=== PATIENT | female | born 1990 | race African-American/Black ===

== ENCOUNTER 2018-06-05 10:51 | Emergency (ER) | payer BC, SELFPAY ==
--- NOTE | 2018-06-05 11:29 | ER ---
Nurse's Notes [facility] Name: Holly Poe Age: 28 yrs Sex: Female : 1990 Arrival Date: 06/05/2018 Time: 10:56 Bed Treatment Private MD: None, None Diagnosis: Acute nasopharyngitis [common cold];Cough Presentation: 06/05 11:01 Presenting complaint: Patient states: Sinus congestion and nonproductive cough x 1 hb week. Denies fever. Transition of care: patient was not received from another setting of care. Onset of symptoms was May 30, 2018. Risk Assessment: Do you want to hurt yourself or someone else? Patient reports no desire to harm self or others. Initial Sepsis Screen: Does the patient meet any 2 criteria? No. Patient's initial sepsis screen is negative. Does the patient have a suspected source of infection? No. Patient's initial sepsis screen is negative. Care prior to arrival: None. 11:01 Method Of Arrival: Ambulatory hb 11:01 Acuity: PAYAL 4 hb Historical: - Allergies: 11:00 No Known Allergies; hb - Home Meds: 11:00 Depo-Provera intramuscular IM [Active]; hb - PMHx: 11:00 None; hb - PSHx: 11:00 None; hb - Immunization history:: Adult Immunizations up to date. - Social history:: Smoking status: Patient/guardian denies using tobacco. - Ebola Screening: : No symptoms or risks identified at this time. Screenin:05 Abuse screen: Denies threats or abuse. Denies injuries from another. Nutritional ss screening: No deficits noted. Tuberculosis screening: No symptoms or risk factors identified. Never had TB. Fall Risk None identified. Assessment: 11:05 General: Appears in no apparent distress. comfortable, Behavior is calm, cooperative, ss Reports feeling ill for > 3 days, Denies fever. Pain: Denies pain. Neuro: Level of Consciousness is awake, alert, obeys commands, Oriented to person, place, time, situation. Cardiovascular: Capillary refill < 3 seconds is brisk in bilateral fingers. Respiratory: Reports cough that is x 1 week that is not productive Airway is patent Respiratory effort is even, unlabored, Respiratory pattern is regular, symmetrical, Breath sounds are clear bilaterally. EENT: Oral mucosa is moist. Throat is clear is pink. Derm: Skin is intact, is healthy with good turgor, Skin is pink, warm \T\ dry. normal. Musculoskeletal: Circulation, motion, and sensation intact. Range of motion: intact in all extremities, Swelling absent. Vital Signs: 11:03 BP 119 / 86; Pulse 72; Resp 16; Temp 98; Pulse Ox 97% ; Weight 51.71 kg; Height 5 ft. 4 hb in. (162.56 cm); Pain 3/10; 11:03 Body Mass Index 19.57 (51.71 kg, 162.56 cm) hb ED Course: 10:56 Patient arrived in ED. sb2 10:56 None, None is Private Physician. sb2 10:59 [facility] jr8 10:59 Charles Cordero MD is Attending Physician. jr8 11:03 Triage completed. hb 11:03 Arm band placed on right wrist. hb 11:05 Patient has correct armband on for positive identification. Bed in low position. Call ss light in reach. 11:50 Stella Powers RN is Primary Nurse. ss 11:52 No provider procedures requiring assistance completed. Patient did not have IV access ss during this emergency room visit. Administered Medications: No medications were administered Outcome: 11:29 Discharge ordered by . jr8 11:52 Discharged to home ambulatory. ss 11:52 Condition: good 11:52 Discharge instructions given to patient, family, Instructed on discharge instructions, follow up and referral plans. medication usage, Demonstrated understanding of instructions, follow-up care, medications, Prescriptions given X 1. 11:53 Patient left the ED. ss Signatures: Stella Powers RN RN Trung Interiano PA PA jr8 Anais Gary RN RN Jing Gurrola sb2
--- NOTE | 2018-06-05 11:29 | EDPHYS ---
Physician Documentation [facility] Name: Holly Poe Age: 28 yrs Sex: Female : 1990 Arrival Date: 06/05/2018 Time: 10:56 Bed Treatment Private MD: None, None ED Physician Charles Cordeor HPI: 06/05 11:20 This 28 yrs old Black Female presents to ER via Ambulatory with complaints of Flu jr8 Symptoms. 11:20 Mother stated that her and her two boys have had coughs. Hers has been going on for a jr8 week now. Denies any other symptoms . Severity of symptoms: At their worst the symptoms were mild in the emergency department the symptoms are unchanged. The patient has not experienced similar symptoms in the past. The patient has not recently seen a physician. Historical: - Allergies: 11:00 No Known Allergies; hb - Home Meds: 11:00 Depo-Provera intramuscular IM [Active]; hb - PMHx: 11:00 None; hb - PSHx: 11:00 None; hb - Immunization history:: Adult Immunizations up to date. - Social history:: Smoking status: Patient/guardian denies using tobacco. - Ebola Screening: : No symptoms or risks identified at this time. ROS: 11:20 Eyes: Negative for injury, pain, redness, and discharge, ENT: Negative for injury, jr8 pain, and discharge, Neck: Negative for injury, pain, and swelling, Cardiovascular: Negative for chest pain, palpitations, and edema, Abdomen/GI: Negative for abdominal pain, nausea, vomiting, diarrhea, and constipation, Back: Negative for injury and pain, MS/Extremity: Negative for injury and deformity, Skin: Negative for injury, rash, and discoloration, Neuro: Negative for headache, weakness, numbness, tingling, and seizure. 11:20 Respiratory: Positive for cough, with no reported sputum, Negative for dyspnea on exertion, shortness of breath, wheezing. Exam: 11:20 Eyes: Pupils equal round and reactive to light, extra-ocular motions intact. Lids and jr8 lashes normal. Conjunctiva and sclera are non-icteric and not injected. Cornea within normal limits. Periorbital areas with no swelling, redness, or edema. ENT: Nares patent. No nasal discharge, no septal abnormalities noted. Tympanic membranes are normal and external auditory canals are clear. Oropharynx with no redness, swelling, or masses, exudates, or evidence of obstruction, uvula midline. Mucous membranes moist. Neck: Trachea midline, no thyromegaly or masses palpated, and no cervical lymphadenopathy. Supple, full range of motion without nuchal rigidity, or vertebral point tenderness. No Meningismus. Cardiovascular: Regular rate and rhythm with a normal S1 and S2. No gallops, murmurs, or rubs. Normal PMI, no JVD. No pulse deficits. Respiratory: Lungs have equal breath sounds bilaterally, clear to auscultation and percussion. No rales, rhonchi or wheezes noted. No increased work of breathing, no retractions or nasal flaring. Abdomen/GI: Soft, non-tender, with normal bowel sounds. No distension or tympany. No guarding or rebound. No evidence of tenderness throughout. Back: No spinal tenderness. No costovertebral tenderness. Full range of motion. Skin: Warm, dry with normal turgor. Normal color with no rashes, no lesions, and no evidence of cellulitis. MS/ Extremity: Pulses equal, no cyanosis. Neurovascular intact. Full, normal range of motion. Neuro: Awake and alert, GCS 15, oriented to person, place, time, and situation. Cranial nerves II-XII grossly intact. Motor strength 5/5 in all extremities. Sensory grossly intact. Cerebellar exam normal. Normal gait. Vital Signs: 11:03 BP 119 / 86; Pulse 72; Resp 16; Temp 98; Pulse Ox 97% ; Weight 51.71 kg; Height 5 ft. 4 hb in. (162.56 cm); Pain 3/10; 11:03 Body Mass Index 19.57 (51.71 kg, 162.56 cm) hb MDM: 11:16 Patient medically screened. jr8 11:20 Data reviewed: vital signs, nurses notes, and as a result, I will discharge patient. jr8 Data interpreted: Pulse oximetry: on room air is 97 %. Interpretation: normal. Counseling: I had a detailed discussion with the patient and/or guardian regarding: the historical points, exam findings, and any diagnostic results supporting the discharge/admit diagnosis, the need for outpatient follow up, a family practitioner, to return to the emergency department if symptoms worsen or persist or if there are any questions or concerns that arise at home. Administered Medications: No medications were administered Disposition: 18:39 Co-signature as Attending Physician, Charles Cordero MD. rn Disposition: 06/05/18 11:29 Discharged to Home. Impression: Acute nasopharyngitis [common cold], Cough. - Condition is Stable. - Discharge Instructions: Viral Respiratory Infection, Cough, Adult. - Prescriptions for Guaifenesin AC 10- 100 mg/5 mL Oral Liquid - take 10 milliliter by ORAL route every 4 hours As needed; 240 milliliter. - Medication Reconciliation Form, Thank You Letter, Antibiotic Education, Prescription Opioid Use form. - Follow up: Private Physician; When: 1 week; Reason: Recheck today's complaints, Continuance of care, Re-evaluation by your physician. - Problem is new. - Symptoms have improved. Signatures: Charles Cordero MD MD rn Smirch, Shelby, RN RN Trung Sandhu PA PA jr8 Anais Gary RN RN Corrections: (The following items were deleted from the chart) 11:53 11:29 06/05/2018 11:29 Discharged to Home. Impression: Acute nasopharyngitis [common ss cold]; Cough. Condition is Stable. Forms are Medication Reconciliation Form, Thank You Letter, Antibiotic Education, Prescription Opioid Use. Follow up: Private Physician; When: 1 week; Reason: Recheck today's complaints, Continuance of care, Re-evaluation by your physician. Problem is new. Symptoms have improved. jr8
[2018-06-05 11:58] VITALS: BP 119/86; TEMP 98; O2SAT 97
== END 2018-06-05 11:53 | disposition home or self-care (01) ==
LOC: ER 10:51
DX: J00 Acute nasopharyngitis [common cold] (principal)
CPT/HCPCS: 99282

== ENCOUNTER 2020-04-30 14:45 | Emergency (ER) | payer SELFPAY ==
--- NOTE | 2020-04-30 16:04 | RAD REPORT ---
EXAM DESCRIPTION: CT - Ct Stroke Brain Wo Cont - 04/30/2020 3:56 pm CLINICAL HISTORY: Dizziness;Visual disturbances Headache, drowsiness, CVA symptomology COMPARISON: No comparisons TECHNIQUE: All CT scans are performed using dose optimization technique as appropriate and may inclu de automated exposure control or mA/KV adjustment according to patient size. FINDINGS: No intracranial hemorrhage, hydrocephalus or extra-axial fluid collection.No areas of brai n edema or evidence of midline shift. The paranasal sinuses and mastoids are clear. The calvarium is intact. IMPRESSION: No acute intracranial abnormality. The findings were discussed with Dr. Waters On 04/30/2020 at 4 p.m. by telephone.
--- NOTE | 2020-04-30 16:21 | RAD REPORT ---
EXAM DESCRIPTION: RAD - Chest Single View - 04/30/2020 4:12 pm CLINICAL HISTORY: stroke Chest pain. COMPARISON: No comparisons FINDINGS: Portable technique limits examination quality. The lungs are grossly clear. The heart is normal in size. No displaced fractures. IMPRESSION: No acute intrathoracic process suspected.
[2020-04-30 16:36] LABS: Urine Blood 1+ (NEG); Urine Glucose NEGATIVE (NEG); Urine Protein NEGATIVE (NEG); Urine Specific Gravity >1.030 (1.005-1.030)
[2020-04-30 16:47] LABS: Barbiturates NEGATIVE (NEGATIVE); Benzodiazepines NEGATIVE (NEGATIVE); Cocaine NEGATIVE (NEGATIVE); METHAMPHETAM NEGATIVE (NEGATIVE); Methadone NEGATIVE (NEGATIVE); Opiates NEGATIVE (NEGATIVE); Phencyclidine NEGATIVE (NEGATIVE); THC Cannibis NEGATIVE (NEGATIVE)
[2020-04-30 16:52] LABS: Absolute Lymphocytes (CBC) 1.9 K/uL (0.7-4.9); Basophils % 0.7 % (0-1.3); Hematocrit 38.9 % (36.0-45.0); MPV 8.3 fL (7.6-11.3); RBC Red Blood Cell Count 4.49 M/uL (3.86-4.86)
[2020-04-30 16:57] LABS: BUN Blood Urea Nitrogen 10 mg/dL (7-18); Bicarbonate 23 mmol/L (21-32); Glucose Level 96 mg/dL (74-106); Potassium 3.9 mmol/L (3.5-5.1); Sodium Level 141 mmol/L (136-145)
[2020-04-30 17:00] LABS: Urine Bacteria >50 /HPF (<20); Urine Culture Reflex Order REFLEXED; Urine RBC NONE SEEN /HPF (NONE SEEN)
[2020-04-30] MEDS ORDERED: CEFTRIAXONE/SWI 1gm 1 GM/10 ML SYR ONE (17:13)
[2020-04-30] MEDS ORDERED: NA CHLORIDE 0.9% 2,000 ML ONE (17:13)
[2020-04-30] MEDS ORDERED: KETOROLAC 30 MG/ML INJ ONE (17:56)
--- NOTE | 2020-04-30 18:12 | RAD REPORT ---
EXAM DESCRIPTION: CT - Stone Protocol - 04/30/2020 6:02 pm CLINICAL HISTORY: Flank pain. FLANK PAIN COMPARISON: Abdomen Pelvis W Contrast dated 03/21/2016 TECHNIQUE: Axial images were obtained without oral or IV contrast. Lack of contrast limits solid org an and vascular assessment. The zoebj-to-bpex spans the entirety of the system partially obscuring uppermost abdomen and lung bases. Coronal reformatted images were obtained and reviewed. All CT scans are performed using dose optimization technique as appropriate and may include automated exposure control or mA/KV adjustment according to patient size. FINDINGS: The lower lung barone are clear. Imaged portions of the liver and spleen show no suspicious findings on non-contrast imaging. The panc reas and adrenal glands are normal. No pathologic lymphadenopathy in the abdomen or pelvis. No urinary tract stones or obstructive uropathy. No bowel obstruction, free air, free fluid or abscess. Normal appendix noted. No significant bony abnormality. IMPRESSION: No urinary tract stones or obstructive uropathy.
--- NOTE | 2020-04-30 18:41 | EDPHYS ---
Physician Documentation [facility] Name: Holly Poe Age: 30 yrs Sex: Female : 1990 Arrival Date: 04/30/2020 Time: 14:50 Bed 27 Private MD: ED Physician Cliff Waters HPI: 04/30 17:50 This 30 yrs old Black Female presents to ER via Ambulatory with complaints of Vision snw Problem. 17:50 Onset: The symptoms/episode began/occurred suddenly, and became persistent. Associated snw signs and symptoms: Pertinent positives: dizziness, headache, visual disturbance after standing suddenly today around noon. Modifying factors: The patient symptoms are alleviated by remaining still, the patient symptoms are aggravated by stimulation. The patient has not experienced similar symptoms in the past. The patient has not recently seen a physician. 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 - Social history:: Smoking status: Patient denies any tobacco usage or history of. ROS: 17:49 Constitutional: Negative for fever, chills, and weight loss. snw 17:49 ENT: Negative for injury, pain, and discharge, Neck: Negative for injury, pain, and swelling, Cardiovascular: Negative for chest pain, palpitations, and edema, Respiratory: Negative for shortness of breath, cough, wheezing, and pleuritic chest pain, Abdomen/GI: Negative for abdominal pain, nausea, vomiting, diarrhea, and constipation, Back: Negative for injury and pain, : Negative for injury, bleeding, discharge, and swelling, MS/Extremity: Negative for injury and deformity, Skin: Negative for injury, rash, and discoloration. 17:49 Eyes: Positive for blurry vision, visual disturbance, of the iris of left eye. 17:49 Neuro: Positive for dizziness, headache. Exam: 17:55 Constitutional: This is a well developed, well nourished patient who is awake, alert, snw and in no acute distress. Head/Face: Normocephalic, atraumatic. Eyes: Pupils equal round and reactive to light, extra-ocular motions intact. Lids and lashes normal. Conjunctiva and sclera are non-icteric and not injected. Cornea within normal limits. Periorbital areas with no swelling, redness, or edema. ENT: Nares patent. No nasal discharge, no septal abnormalities noted. Tympanic membranes are normal and external auditory canals are clear. Oropharynx with no redness, swelling, or masses, exudates, or evidence of obstruction, uvula midline. Mucous membranes moist. Neck: Trachea midline, no thyromegaly or masses palpated, and no cervical lymphadenopathy. Supple, full range of motion without nuchal rigidity, or vertebral point tenderness. No Meningismus. Chest/axilla: Normal chest wall appearance and motion. Nontender with no deformity. No lesions are appreciated. Cardiovascular: Regular rate and rhythm with a normal S1 and S2. No gallops, murmurs, or rubs. Normal PMI, no JVD. No pulse deficits. Respiratory: Lungs have equal breath sounds bilaterally, clear to auscultation and percussion. No rales, rhonchi or wheezes noted. No increased work of breathing, no retractions or nasal flaring. Abdomen/GI: Soft, non-tender, with normal bowel sounds. No distension or tympany. No guarding or rebound. No evidence of tenderness throughout. Back: No spinal tenderness. No costovertebral tenderness. Full range of motion. Skin: Warm, dry with normal turgor. Normal color with no rashes, no lesions, and no evidence of cellulitis. MS/ Extremity: Pulses equal, no cyanosis. Neurovascular intact. Full, normal range of motion. Neuro: Awake and alert, GCS 15, oriented to person, place, time, and situation. Cranial nerves II-XII grossly intact. Motor strength 5/5 in all extremities. Sensory grossly intact. Cerebellar exam normal. Normal gait. Psych: Awake, alert, with orientation to person, place and time. Behavior, mood, and affect are within normal limits. Vital Signs: 15:44 BP 128 / 83; Pulse 76; Resp 16; Temp 98; Pulse Ox 98% ; jl7 16:43 BP 112 / 78; Pulse 72; Resp 16; Pulse Ox 100% on R/A; Pain 0/10; ls4 18:09 BP 116 / 80 Supine; Pulse 68; Resp 18; Pulse Ox 100% ; ls4 18:11 BP 115 / 78 Sitting; Pulse 68; Pulse Ox 100% on R/A; ls4 18:13 BP 122 / 86 Standing; Pulse 70; Pulse Ox 100% ; ls4 NIH Stroke Scale Scores: 16:00 NIHSS Score: 0 snw MDM: 16:39 Patient medically screened. snw 17:48 Data reviewed: vital signs, nurses notes. Data interpreted: Pulse oximetry: on room air snw is 100 %. Interpretation: normal. Response to treatment: the patient's symptoms have markedly improved after treatment. Response to treatment: suddenly c/o left flank and lower abd pain, will eval for stone. 04/30 16:05 Order name: Urine Drug Screen; Complete Time: 16:48 snw 04/30 16:05 Order name: Urine Microscopic Only; Complete Time: 17:07 snw 04/30 16:21 Order name: Glucose, Ancillary Testing; Complete Time: 16:23 [facility] 04/30 16:27 Order name: Urine Dipstick--Ancillary (enter results); Complete Time: 16:38 al 04/30 16:27 Order name: Urine --Ancillary (enter results); Complete Time: 16:38 al 04/30 16:39 Order name: CBC with Diff; Complete Time: 17:07 snw 04/30 15:48 Order name: CT Stroke Brain w/o Contrast; Complete Time: 16:07 sv 04/30 16:06 Order name: Chest Single View XRAY; Complete Time: 16:23 al 04/30 16:39 Order name: Chem 7; Complete Time: 16:59 snw 04/30 17:02 Order name: Urine Culture [facility] 04/30 17:47 Order name: CT Stone Protocol; Complete Time: 18:39 snw 04/30 16:03 Order name: EKG; Complete Time: 16:04 [facility] 04/30 16:04 Order name: EKG - Nurse/Tech; Complete Time: 16:21 [facility] 04/30 16:05 Order name: FSBS; Complete Time: 16:21 snw 04/30 16:05 Order name: Urine Test (obtain specimen); Complete Time: 16:21 [facility] 04/30 16:05 Order name: Urine Dipstick-Ancillary (obtain specimen); Complete Time: 16:21 snw 04/30 16:39 Order name: Orthostatics; Complete Time: 18:20 snw Administered Medications: 17:10 Drug: NS 0.9% 2000 ml Route: IV; Rate: bolus; Site: right antecubital; ls4 17:10 Drug: Rocephin 1 grams Route: IV; Rate: calculated rate; Site: right antecubital; ls4 17:49 Drug: TORadol - Ketorolac 15 mg Route: IVP; Site: right antecubital; ls4 18:10 Follow up: Response: No adverse reaction; Marked relief of symptoms ls4 Disposition: 05/01 08:48 Co-signature as Attending Physician, Cliff Waters MD I agree with the assessment and kdr plan of care. Disposition: 04/30/20 18:41 Discharged to Home. Impression: Urinary tract infection, site not specified, Dehydration, Migraine, unspecified, not intractable. - Condition is Stable. - Discharge Instructions: Dehydration, Adult, Migraine Headache, Urinary Tract Infection, Adult, Rehydration, Adult. - Prescriptions for Augmentin 875- 125 mg Oral Tablet - take 1 tablet by ORAL route every 12 hours for 10 days; 20 tablet. promethazine 25 mg Oral Tablet - take 1 tablet by ORAL route every 6 hours As needed; 20 tablet. - Medication Reconciliation Form, Thank You Letter, Antibiotic Education, Prescription Opioid Use form. - Follow up: Emergency Department; When: As needed; Reason: Worsening of condition. Follow up: Private Physician; When: 2 - 3 days; Reason: Recheck today's complaints, Continuance of care, Re-evaluation by your physician. NIH Stroke Scale - NIH Stroke Score Date: 04/30/2020 Time: 16:00 Total Score = 0 1a. Level of Consciousness (LOC) - 0(Alert) 1b. Level of Consciousness (LOC) (Year \T\ Age) - 0(Both) 1c. LOC Commands (Open \T\ Closes Eyes/Parking Assistant) - 0(Both) 2. Best Gaze (Lateral Gaze Paresis) - 0(Normal) 3. Visual Field Loss - 0(No visual loss) 4. Facial Palsy - 0(Normal) 5a. Left Arm: Motor (10-second hold) - 0(No drift) 5b. Right Arm: Motor (10-second hold) - 0(No drift) 6a. Left Leg: Motor (5-second hold - always test supine) - 0(No drift) 6b. Right Leg: Motor (5-second hold - always test supine) - 0(No drift) 7. Limb Ataxia (finger/nose \T\ heel/foy - test with eyes open) - 0(Absent) 8. Sensory Loss (pinprick arms/legs/face) - 0(Normal) 9. Best Language: Aphasia (description/naming/reading) - 0(No aphasia) 10. Dysarthria (speech clarity - read or repeat words) - 0(Normal) 11. Extinction and Inattention (visual/tactile/auditory/spatial/personal) - 0(No abnormality) Initials: snw Signatures: Dispatcher [employer] EDMS Cliff Waters MD MD [facility] Olya Bragg, CHILI MAKER-C CHILI MAKER-Csnw Javier Miller RN RN jl7 Karen Keane RN RN ls4 Corrections: (The following items were deleted from the chart) 04/30 17:29 15:45 Home Meds: Depo-Provera intramuscular IM [Inactive]; jl7 ls4 19:24 18:41 04/30/2020 18:41 Discharged to Home. Impression: Urinary tract infection, ls4 site not specified; Dehydration; Migraine, unspecified, not intractable. Condition is Stable. Forms are Medication Reconciliation Form, Thank You Letter, Antibiotic Education, Prescription Opioid Use. Follow up: Emergency Department; When: As needed; Reason: Worsening of condition. Follow up: Private Physician; When: 2 - 3 days; Reason: Recheck today's complaints, Continuance of care, Re-evaluation by your physician. snw
--- NOTE | 2020-04-30 18:41 | ER ---
Nurse's Notes [facility] Name: Holly Poe Age: 30 yrs Sex: Female : 1990 Arrival Date: 04/30/2020 Time: 14:50 Bed 27 Private MD: Diagnosis: Urinary tract infection, site not specified;Dehydration;Migraine, unspecified, not intractable Presentation: 04/30 15:41 Chief complaint: Patient states: Dizziness and loss of vision since 1200. Coronavirus jl7 screen: Proceed with normal triage. Patient denies a cough. Patient denies shortness of breath or difficulty breathing. Patient denies measured and/or subjective temperature greater than 100.4F prior to today's visit. Patient denies travel on a cruise ship or to a country the [facility] currently lists as an affected area. Patient denies contact with known and/or suspected case of COVID-19. 15:41 Method Of Arrival: Ambulatory jl7 15:41 Acuity: PAYAL 2 jl7 15:44 Ebola Screen: No symptoms or risks identified at this time. Initial Sepsis Screen: Does jl7 the patient meet any 2 criteria? No. Patient's initial sepsis screen is negative. Does the patient have a suspected source of infection? No. Patient's initial sepsis screen is negative. Risk Assessment: Do you want to hurt yourself or someone else? Patient reports no desire to harm self or others. Onset of symptoms was April 30, 2020 at 12:00. Care prior to arrival: None. Triage Assessment: 15:41 General: Appears in no apparent distress. uncomfortable, Behavior is calm, cooperative, sv appropriate for age. Neuro: Level of Consciousness is awake, alert, obeys commands, Oriented to person, place, time, situation, Fisher Mussel are weak on left Weakness in left arm(s) Speech is normal, Facial symmetry appears normal, Reports dizziness, loss of vision. 16:38 General: Appears in no apparent distress. uncomfortable, Behavior is calm, cooperative. ls4 Pain: Denies pain. EENT: Sclera/Cornea are clear in outer aspect of conjuctiva of right eye, inner aspect of conjuctiva of right eye, outer aspect of conjuctiva of left eye and inner aspect of conjunctiva of left eye Reports blurred vision in iris of left eye. Neuro: Level of Consciousness is awake, alert, obeys commands, Oriented to person, place, time, situation, Fisher Mussel are equal bilaterally Moves all extremities. Gait is steady, Speech occasional mild stutter. Facial symmetry appears normal, Pupils are PERRLA, Intact. 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 - Social history:: Smoking status: Patient denies any tobacco usage or history of. Screenin:45 Patient has been NPO before screening. The patient is alert, able to follow commands. ls4 The patient does not exhibit slurred or garbled speech The patient is not exhibiting difficulty speaking. The patient does not exhibit difficulty understanding words. The patient is able to swallow own secretions with no drooling or need for suction. Patient tolerated one teaspoon of water. No drooling, immediate coughing, gurgling, or clearing of the throat was noted. The patient tolerated 90mL of water. No drooling, immediate coughing, gurgling, or clearing of the throat was noted. The patient passed the bedside swallow screening. Oral medications may be given as ordered. Contact Physician for further diet orders. 16:03 Abuse screen: Denies threats or abuse. Denies injuries from another. Nutritional ls4 screening: No deficits noted. Tuberculosis screening: No symptoms or risk factors identified. Fall Risk None identified. Assessment: 15:45 Reassessment: Pt to CT by myself via wheelchair. sv 15:53 Reassessment: Pt back from CT. sv 17:47 Reassessment: pt reports left lower quadrant and flank pain. Pt reports sudden and ls4 severe onset. Pt is grimacing and guarding left flank. 17:47 Pain: Complains of pain in left low back, posterior aspect of left lateral abdomen and ls4 left lower quadrant Pain currently is 10 out of 10 on a pain scale. Quality of pain is described as sharp, shooting, stabbing, Pain began suddenly. 17:47 Reassessment: Olya WILKINSONP notified. ls4 Vital Signs: 15:44 BP 128 / 83; Pulse 76; Resp 16; Temp 98; Pulse Ox 98% ; jl7 16:43 BP 112 / 78; Pulse 72; Resp 16; Pulse Ox 100% on R/A; Pain 0/10; ls4 18:09 BP 116 / 80 Supine; Pulse 68; Resp 18; Pulse Ox 100% ; ls4 18:11 BP 115 / 78 Sitting; Pulse 68; Pulse Ox 100% on R/A; ls4 18:13 BP 122 / 86 Standing; Pulse 70; Pulse Ox 100% ; ls4 NIH Stroke Scale Scores: 16:00 NIHSS Score: 0 snw ED Course: 14:50 Patient arrived in ED. mr 15:44 Triage completed. jl7 15:45 Arm band placed on right wrist. jl7 15:45 Patient has correct armband on for positive identification. Bed in low position. Call ls4 light in reach. Side rails up X 1. monitoring engineer on. Pulse ox on. NIBP on. 15:45 Warm blanket given. Verbal reassurance given. Diet: Patient is NPO. ls4 15:49 Olya Bragg FNP-C is PHCP. snw 15:49 Cliff Waters MD is Attending Physician. snw 15:56 CT Stroke Brain w/o Contrast In Process Unspecified. EDMS 15:57 Inserted saline lock: 20 gauge in left antecubital area, using aseptic technique. sv ,using aseptic technique. done by [facility] Blood collected. 16:00 Urine collected: EKG done, by ED staff, reviewed by Olya CAREY. kj1 16:01 Karen Keane, PERFECTO is Primary Nurse. ls4 16:02 X-ray(s) taken. sv 16:12 Chest Single View XRAY In Process Unspecified. EDMS 16:56 No provider procedures requiring assistance completed. ls4 17:21 Urine Culture Sent. ls4 17:30 IV discontinued, bleeding controlled, Pressure dressing applied. dm5 18:02 CT Stone Protocol In Process Unspecified. EDMS 18:21 No apparent distress. Resting quietly. ls4 Administered Medications: 17:10 Drug: NS 0.9% 2000 ml Route: IV; Rate: bolus; Site: right antecubital; ls4 17:10 Drug: Rocephin 1 grams Route: IV; Rate: calculated rate; Site: right antecubital; ls4 17:49 Drug: TORadol - Ketorolac 15 mg Route: IVP; Site: right antecubital; ls4 18:10 Follow up: Response: No adverse reaction; Marked relief of symptoms ls4 Outcome: 18:41 Discharge ordered by snw 19:24 Patient left the ED. ls4 05/01 15:54 Condition: good dm5 15:54 Discharge instructions given to patient, Instructed on discharge instructions, follow dm5 up and referral plans. Demonstrated understanding of instructions, follow-up care, Prescriptions given X 1. 15:55 Discharged to home ambulatory. dm5 NIH Stroke Scale - NIH Stroke Score Date: 04/30/2020 Time: 16:00 Total Score = 0 1a. Level of Consciousness (LOC) - 0(Alert) 1b. Level of Consciousness (LOC) (Year \T\ Age) - 0(Both) 1c. LOC Commands (Open \T\ Closes Eyes/Fuel Cell Systems Engineer) - 0(Both) 2. Best Gaze (Lateral Gaze Paresis) - 0(Normal) 3. Visual Field Loss - 0(No visual loss) 4. Facial Palsy - 0(Normal) 5a. Left Arm: Motor (10-second hold) - 0(No drift) 5b. Right Arm: Motor (10-second hold) - 0(No drift) 6a. Left Leg: Motor (5-second hold - always test supine) - 0(No drift) 6b. Right Leg: Motor (5-second hold - always test supine) - 0(No drift) 7. Limb Ataxia (finger/nose \T\ heel/foy - test with eyes open) - 0(Absent) 8. Sensory Loss (pinprick arms/legs/face) - 0(Normal) 9. Best Language: Aphasia (description/naming/reading) - 0(No aphasia) 10. Dysarthria (speech clarity - read or repeat words) - 0(Normal) 11. Extinction and Inattention (visual/tactile/auditory/spatial/personal) - 0(No abnormality) Initials: snw Signatures: Dispatcher [employer] Carole Kennedy RN RN dm5 Britni Hernandez RN RN sv Therrien, Shelly, CLERK RATING-C CLERK RATING-Csnw Edelmira Lucero Jahala, RN RN jl7 Karen Keane RN RN ls4 Natalie Woodard kj1 Corrections: (The following items were deleted from the chart) 04/30 17:29 15:45 Home Meds: Depo-Provera intramuscular IM [Inactive]; jl7 ls4 18:20 18:04 Reassessment: chas4 ls4
[2020-04-30 20:06] VITALS: TEMP 98
[2020-04-30 20:24] VITALS: O2SAT 100
[2020-04-30 20:27] VITALS: BP 122/86
--- NOTE | 2020-05-02 09:00 | EKG ---
Test Date: 2020-04-30 Test Time: 16:26:48 Dry Room Operator: JANET MEASUREMENT RESULTS: Intervals: Rate: 57 TN: 132 QRSD: 86 QT: 402 QTc: 391 [place]: P: 75 TN: 132 QRS: 75 T: 55 INTERPRETIVE STATEMENTS: Sinus bradycardia with sinus arrhythmia Possible Left atrial enlargement Borderline ECG No previous ECG available for comparison Electronically Signed On 05-02-20 08:55:46 CDT by Eyad Wagner
== END 2020-04-30 19:24 | disposition home or self-care (01) ==
LOC: ER 14:45
DX: N39.0 Urinary tract infection, site not specified (principal); E86.0 Dehydration; G43.909 Migraine, unspecified, not intractable, without status migrainosus
CPT/HCPCS: 36415; 70450; 71045; 74176; 76377; 80048; 80307; 81003; 81015; 81025; 82947; 85025; 87086; 87088; 93005; 96374; 96375; 99285; J0696; J7030